=== PATIENT | female | born 1960 | race Caucasian/White ===

== ENCOUNTER → 2017-05-03 | Outpatient (CLI) | payer BC ==
[~2017-05-03] VITALS: Ht 167.6 cm; Wt 83.5 kg
[~2017-05-03] MED LIST: IPRA4AER IH; LEVO25TA4 PO; LORA10TA68 PO; LOSA25TA4 PO; PRAV20TA2 PO; PROAIR HFA8.5 GM INH; SITA1TAB11 PO
--- NOTE | 2017-05-03 09:20 | RAD ---
Chest, 2 views, 05/03/2017: History: Dyspnea on exertion Comparison is made to a study from 09/22/2005. The heart size and pulmonary vascularity are normal. There is an unchanged nodule in the right lower chest laterally, presumably a granuloma. No acute infiltrates are seen. There is no evidence of pleural fluid. Mild spurring is present in the spine. IMPRESSION: No acute cardiopulmonary abnormality is detected.
--- NOTE | 2017-05-03 14:09 | RAD ---
APPROVED REPORT Test Type: Exercise Stress Nurse/Tech: Rhianna Gilbert R.N. Cardiac History: Hypertension, Diabetes Medications: See Electronic Medical Record Medical History: See Electronic Medical Record Resting ECG: NSR Resting Heart Rate: 58 bpm Resting Blood Pressure: 152/71mmHg Pretest Chest Pain: No chest pain Nurse/Tech Notes S1S2, lungs sound clear Consent: The procedure was explained to the patient in lay terms. Informed consent was witnessed. Ivan taran was entered into [employer]. History and Stress Test performed by Rhianna Gilbert R.N. Stress Symptoms No chest pain or symptoms. POST EXERCISE Reason for Termination: Reached target heart rate Target HR: 138 Max HR: 150 bpm Exercise duration: 4 min 34 sec. min:sec, 2 Stage Max Blood Pressure: 174/84mmHg Blood Pressure response to exercise: Normal blood pressure response during stress. Chest Pain: No. Arrhythmia: No. ST Change: No. INTERPRETATION Stress EKG Conclusion: No evidence of stress induced EKG changes. Imaging Protocol IMAGE PROTOCOL: Rest Tc-99m/stress Tc-99m 1 day Rest: Stress: Viability: Radiopharm.Tc99m TpsjhkljrNd13z Sestamibi Ukwk10mQb 32mCi Img Date 05/03/2017 05/03/2017 Inj-Img [id number]. 60min. Rest Admin Site:IV - Right AntecubitalAdministrator:АННА Ahumada, ARRT (R)(N) Stress Admin Site: IV - Right AntecubitalAdministrator: Patrick Horvath, RT (R)(N) STRESS DATA End Diast. Vol.83.0mlAv. Heart Rate60.0bpm End Syst. Vol.22.0mlCO Index BSA0.0L/min Myocardial Dvzp504.0gEject. Oirnkspb68.0% Stress Rates Pk. Fill Rate2.06EDV/secLVtime Pk. Fill 292.24msec Pk. Empty Rate2.66ESV/secLVtime Pk. Fpibm027.79msec 10/31 Pk. Fill1.40EDV/sec Stress Scores Regional WT1.00Summed WT5.00 Regional WM0.00Summed WM4.00 The rest and stress images show normal perfusion, normal contraction and thickening. LV Perf. Quant 17 Seg. SSS0.00 17 Seg. SRS0.00 17 Seg. SDS0.00 Stress Defect Extent (% LAD)0.00Rest Defect Extent (% LAD)0.00Rev. Defect Extent (% LAD)0.00 Stress Defect Extent (% LCX) 0.00Rest Defect Extent (% LCX)0.00Rev. Defect Extent (% LCX)0.00 Stress Defect Extent (% RCA)0.00Rest Defect Extent (% RCA)0.00Rev. Defect Extent (% RCA)0.00 Stress Defect Extent (% SETH)0.00Rest Defect Extent (% SETH)0.00Rev. Defect Extent (% SETH)0.00 Other Information Quality:Good Risk Assessment: Low Risk Conclusion 1. No evidence of stress induced EKG changes. 2. Normal perfusion at stress/rest. (There is a very subtle reversible apical perfusion defect on str ess images that is at the threshold levels of perfusion abnormality but there is normal wall motion, likely suggestive of artifact) 3. Low risk study 4. Normal EF at > 70%
--- NOTE | 2017-05-03 16:59 | CARD ---
APPROVED REPORT EXAM: Two-dimensional and M-mode echocardiogram with Doppler and color Doppler. Other Information Quality : GoodHR: 72bpm Rhythm : NSR INDICATION Murmur, Dyspnea on exertion RISK FACTORS Hypertension Diabetes 2D DIMENSIONS RVDd3.5 (2.9-3.5cm)Left Atrium(2D)4.4 (1.6-4.0cm) IVSd1.0 (0.7-1.1cm)Aortic Root(2D)3.0 (2.0-3.7cm) LVDd4.4 (3.9-5.9cm)LVOT Diameter2.3 (1.8-2.4cm) PWd1.0 (0.7-1.1cm)LVDs3.0 (2.5-4.0cm) FS (%) 32.7 %SV53.5 ml LVEF(%)61.3 (>50%) Aortic Valve AoV Peak Apollo.125.8cm/sAoV VTI27.7cm AO Peak GR.6.3mmHgLVOT Peak Apollo.105.5cm/s AO Mean GR.3mmHgAVA (VMAX)3.36cm2 Mitral Valve MV E Ojxuymxc98.5cm/sMV E Peak Gr.4mmHg MV DECEL [id number] A Terzlqvr946.4cm/s MV E Mean Gr.2mmHgE/A Ratio0.9 MV A Rckzabwr847rs Pulmonary Valve PV Peak Prvuyvqm76.9cm/s Pulmonary Vein S1 Xjcayjrx08.9cm/sD2 Ntqjbbhp45.0cm/s PVa [id number] LEFT VENTRICLE The left ventricle is normal size. There is normal left ventricular wall thickness. The left ventricu lar systolic function is normal. The Ejection Fraction is 55-60%. There is normal LV segmental wall m otion. Transmitral Doppler flow pattern is Grade I-abnormal relaxation pattern. There is no ventricul ar septal defect visualized. RIGHT VENTRICLE The right ventricle is normal size. There is normal right ventricular wall thickness. The right ventr icular systolic function is normal. ATRIA The left atrium is mildly dilated. The right atrium size is normal. The interatrial septum is intact with no evidence for an atrial septal defect or patent foramen ovale as noted on 2-D or Doppler imagi ng. AORTIC VALVE The aortic valve is mildly thickened. The aortic valve is trileaflet. Doppler and Color Flow revealed no significant aortic regurgitation. There is no significant aortic valvular stenosis. MITRAL VALVE The mitral valve leaflets are mildly thickened. There is no evidence of mitral valve prolapse. There is no mitral valve stenosis. Doppler and Color Flow revealed trace mitral regurgitation. TRICUSPID VALVE Doppler and Color Flow revealed no tricuspid valve regurgitation noted. Unable to determine pulmonary artery pressure at exam time. PULMONIC VALVE The pulmonary valve is not well visualized but appears to opens well. Doppler and Color Flow revealed no pulmonic valvular regurgitation. There is no pulmonic valvular stenosis by spectral Doppler. GREAT VESSELS The aortic root is normal in size. The ascending aorta is normal in size. The pulmonary artery is nor mal. The IVC is normal in size and collapses >50% with inspiration. PERICARDIAL EFFUSION There is no evidence of significant pericardial effusion. Critical Notification Critical Value: No <Conclusion> The left ventricular systolic function is normal. The Ejection Fraction is 55-60%. There is normal LV segmental wall motion. The left atrium is mildly dilated. Trace mitral regurgitation. There is no evidence of significant pericardial effusion.
== END | disposition home or self-care (01) ==
LOC: ECHO 07:45
PROVIDERS: ATTEND Internal Medicine Cardiovascular Disease
DX: I34.0 Nonrheumatic mitral (valve) insufficiency (principal); I10 Essential (primary) hypertension; I87.2 Venous insufficiency (chronic) (peripheral)
CPT/HCPCS: 71020; 78452; 93017; 93306; 96374; 96376; A9500